=== PATIENT | male | born 1955 | race African-American/Black ===

== ENCOUNTER 2017-03-16 14:16 | Emergency (ER) | payer OTHER ==
[~2017-03-16 14:16] MED LIST: CYCL-36 PO; NAPR500 PO; TRIBENZOR PO; VIAG25TA PO
[2017-03-16 14:44] VITALS: BP 119/75; PULSE 94; RESP 20; TEMP 98.5
[2017-03-16] MEDS ORDERED: AMLO5TAB2 PO (15:04)
[2017-03-16] MEDS ORDERED: HYDR12.56 PO (15:04)
[2017-03-16] MEDS ORDERED: ENAL20TA PO (15:04)
[2017-03-16] MEDS ORDERED: ERYTOIN10 RIGHT EYE (15:52)
[2017-03-16] MEDS ORDERED: BENZ100 PO (15:52)
--- NOTE | 2017-03-16 16:00 | PD ---
HPI Chief Complaint: ENT Complaint Time Seen by Provider: 15:07 Travel History International Travel<30 days: No Contact w/Intl Traveler<30days: No Traveled to known affect area: No History of Present Illness HPI 61-year-old male with history of hypertension presents to the emergency room for evaluation of mildly productive cough, congestion, sore throat for the past 5 days. He has associated right eye redness and drainage started yesterday. States he woke up with his eye crusted shut. He reports tearing in the left eye but no other eye symptoms. He has been taking multiple [id number] medications without significant relief in symptoms. Mucous is yellow. He reports feeling hot 2 days ago but did not actually take his temperature. PFSH Past Medical History Diminished Hearing: No Hypertension: Yes Immunizations Current: Yes Past Surgical History Surgical History: No Previous Surgery Social History Alcohol Use: No Tobacco Use: No Substance Use: No Allergies-Medications (Allergen,Severity, Reaction): Coded Allergies: No Known Allergies (Unverified , 07/13/12) Reported Meds & Prescriptions Reported Meds & Active Scripts Active Tessalon Perles (Benzonatate) 100 Mg Cap 100 Mg PO TID PRN Erythromycin Opth Oint 5 Mg/Gm Oint 1 Applic RIGHT EYE QID Reported Amlodipine (Amlodipine Besylate) 5 Mg Tab 5 Mg PO DAILY Enalapril (Enalapril Maleate) 20 Mg Tab 20 Mg PO DAILY Hydrochlorothiazide 12.5 Mg Tab 12.5 Mg PO DAILY Review of Systems Except as stated in HPI: all other systems reviewed are Neg Physical Exam Narrative GENERAL: Well-nourished, well-developed male in no acute distress. Afebrile. Ambulatory. SKIN: Focused skin assessment warm/dry. HEAD: Normocephalic. EYES: PERRL, EOMI, moderate injection of the right eye. No scleral icterus. ENT: Mucosa pink and moist. Moderate erythema of the pharynx without edema or exudates. No uvular edema. No uvular, palatal, or tonsillar deviation. Airway patent. Nasal turbinates appear normal without nasal blood, purulent drainage or septal hematoma. EARS: Bilateral pinnae and external canals appear within normal limits. Bilateral tympanic membranes without erythema, dullness or perforation. NECK: Supple, trachea midline. No JVD or lymphadenopathy. CARDIOVASCULAR: Regular rate and rhythm without murmurs, gallops, or rubs. RESPIRATORY: Breath sounds equal bilaterally. No accessory muscle use. No crackles, rales, wheezes, or rhonchi. Data Data Last Documented VS Vital Signs Date Time Temp Pulse Resp B/P (MAP) Pulse Ox O2 Delivery O2 Flow Rate FiO2 03/16/17 14:44 98.5 94 20 119/75 (90) MDM Medical Decision Making Medical Screen Exam Complete: Yes Emergency Medical Condition: Yes Medical Record Reviewed: Yes Differential Diagnosis Pharyngitis, upper respiratory infection, sinusitis, conjunctivitis Narrative Course 61-year-old male presents to the emergency room for evaluation of multiple upper respiratory symptoms for the past 5 days. He had right eye redness and draining that started yesterday. Patient is afebrile and well-appearing in the emergency room. Vital signs stable. Resting comfortably. Physical exam reveals moderate erythema of the pharynx without edema or exudates. There is moderate injection of the right eye without significant drainage. EOMI without pain. Lungs sounds clear and equal bilaterally. This is viral upper respiratory infection with postnasal drip causing cough. Patient will be treated empirically for bacterial conjunctivitis and told to follow up with a primary care physician or return for worsening symptoms. He understands and agrees to plan. Diagnosis Primary Impression: Viral upper respiratory infection Additional Impression: Conjunctivitis Qualified Codes: B30.9 - Viral conjunctivitis, unspecified Referrals: Primary Care Physician Additional Instructions: Rest and drink plenty of fluids. Take Tessalon Perles as directed, as needed for cough. Apply ointment to affected eye 4 times daily for 5-7 days. Follow-up with a primary care physician. Return to the emergency room for worsening symptoms. Med/Other Pt SpecificInfo: Prescription(s) given Scripts Benzonatate (Tessalon Perles) 100 Mg Cap 100 MG PO TID Y for COUGH, #21 CAP 0 Refills Prov: Leonardo Luna MD 03/16/17 Erythromycin Opth Oint (Erythromycin Opth Oint) 5 Mg/Gm Oint 1 APPLIC RIGHT EYE QID for Infection, #1 TUBE 0 Refills Prov: Leonardo Luna MD 03/16/17 Disposition: 01 DISCHARGE HOME Condition: Stable Sophia Haro Mar 16, 2017 16:00
== END 2017-03-16 16:51 | disposition home or self-care (01) ==
LOC: PHEFT 14:16
DX: J06.9 Acute upper respiratory infection, unspecified (principal); B30.9 Viral conjunctivitis, unspecified; I10 Essential (primary) hypertension
CPT/HCPCS: 99284